=== PATIENT | female | born 1990 | race Caucasian/White ===

== ENCOUNTER 2022-05-17 13:49 | Outpatient (CLI) | payer BC, OTHER, MEDICAID, SELFPAY ==
--- NOTE | ~2022-05-17 | US_ITS ---
EXAMINATION: US OB <=14 wk fetus w TV DATE: 05/17/2022 15:03 INDICATION: Bleeding during first trimester TECHNIQUE: Real-time pelvic transabdominal and transvaginal ultrasound was performed. COMPARISON: None. FINDINGS: The uterus measures 9.4 x 6.1 x 4.1 cm. There is an intrauterine fluid collection. No visib le pole is identified. The intrauterine fluid collection measures 4 mm, which correlates with a n estimated gestational age of 5 weeks and 1 day(s) (+/-) 3 day(s). The right ovary measures 2.4 x 1.5 x 1.4 cm. The left ovary measures 2.6 x 2.4 x 1.7 cm. There is nor mal vascular flow in the ovaries. There is no free fluid in the pelvis. IMPRESSION: 1. 4 mm intrauterine fluid collection without visible pole, possibly due to early . Es timated gestational age of 5 weeks and 1 day(s) (+/-) 3 day(s) and an estimated delivery date of 01/16 based on mean sac diameter. Reviewed, dictated and finalized at location L. [employer] IMPRESSION: 1. 4 mm intrauterine fluid collection without visible pole, possibly due to early . Estimated gestational age of 5 weeks and 1 day(s) (+/-) 3 d ay(s) and an estimated delivery date of 01/16/2023 based on mean sac diameter.
== END 2022-05-17 13:50 | disposition home or self-care (01) ==
PROVIDERS: Visit Provider Obstetrics & Gynecology
DX: O20.9 Hemorrhage in early pregnancy, unspecified (principal); Z3A.00 Weeks of gestation of pregnancy not specified
CPT/HCPCS: 76801; 76817

== ENCOUNTER 2022-05-26 06:55 | Outpatient (CLI) | payer BC, OTHER, MEDICAID, SELFPAY ==
--- NOTE | ~2022-05-26 | US_ITS ---
EXAMINATION: US OB <=14 wk fetus w TV DATE: 05/26/2022 08:35 INDICATION: Spotting complicating first trimester TECHNIQUE: Real-time pelvic transabdominal and transvaginal ultrasound was performed. COMPARISON: 05/17/2022 FINDINGS: The uterus measures 8.7 x 4.4 x 6.0 cm. There is an intrauterine gestational sac. The feta l pole and yolk sac are not yet identified. The mean sac diameter measures 5 mm, which correlates wit h an estimated gestational age of 5 weeks and 2 day(s) (+/-) 3 day(s). The right ovary measures 4.2 x 2.5 x 2.4 cm and contains a 2.4 cm complicated cyst. The left ovary me asures 2.9 x 1.9 x 1.7 cm and contains simple cysts measuring up to 1.1 cm. There is normal vascular flow in the ovaries. There is no free fluid in the pelvis. IMPRESSION: 1. Intrauterine gestational sac with an estimated gestational age of 5 weeks and 3 day(s) (+/-) 3 day (s) and an estimated delivery date of 01/24/2023 based on mean sac diameter. No correlate for spottin g. Reviewed, dictated and finalized at location [facility]. [employer] OPERATOR IMPRESSION: 1. Intrauterine gestational sac with an estimated gestational age of 5 weeks an d 3 day(s) (+/-) 3 day(s) and an estimated delivery date of 01/24/2023 based on mean sac diameter. No correlate for spotting.
== END 2022-05-26 06:56 | disposition home or self-care (01) ==
PROVIDERS: Visit Provider Obstetrics & Gynecology
DX: O26.859 Spotting complicating pregnancy, unspecified trimester (principal); Z3A.00 Weeks of gestation of pregnancy not specified
CPT/HCPCS: 36415; 76801; 76817; 84702

== ENCOUNTER 2022-05-31 01:11 | Day surgery (SDC) | payer OTHER, MEDICAID, SELFPAY ==
[2022-05-27 10:48] VITALS: BMI 28.3
--- NOTE | 2022-05-27 10:53 | PC.NURSE ---
Report to the Outpatient Waiting Room, entrance under the green pavilion located off [facility], at time 1100 on date 05/31/22. Planned Procedure Time: 1300. Time changes happen often and if your time is changed the preop area will call you the afternoon before. - You and your visitor will be asked to self-screen and do not enter if you have any COVID symptoms. - Only one visitor is requested with a max of two and NO children visitors are allowed at this time. - The patient visitor may be requested to leave or wait in car when not with patient due to distancing restrictions. - A mask is optional within the hospital at this time. Patients may have clear liquids (water, carbonated beverages, clear teas, apple juice) until 3 hours prior to surgery with a maximum of 20 ounces. - No food from midnight until time of surgery Take the following medications with a SIP of water the morning of surgery: BUSPIRONE DO NOT STOP ANY OF YOUR OTHER PRESCRIPTION MEDICATIONS PRIOR TO SURGERY EXCEPT THE FOLLOWING Medications to discontinue per physician: VITAMIN Date to take last dose: 05/27/22 Please no make-up, nail occitan, hairspray, perfume, deodorant, or body powder the day of surgery. No jewelry (including any body piercings) or valuables the day of surgery, leave them at home. Please take a shower or bath the night before, or the morning of, surgery with an antibacterial soap. Wear comfortable, loose fitting clothing. - Jewelry must be removed prior to entering the operating room. Rings and piercings that are not removed may be cut off. - The hospital will not accept responsibility for valuables. - Please leave all valuables, including medications, at home the day of surgery. If you are going home after surgery, a licensed driver's license examiner must drive you home. - NO public transportation without another adult if you receive anesthesia. - We recommend that an adult stay with you for 24 hours following discharge. - We also recommend that you do not drive, make important decision, drink alcoholic beverages, or take any drugs that were not prescribed by your health care provider for at least 24 hours after your discharge time. Follow any additional instructions given to you from your surgeon. If you or anyone in your household have experienced Covid symptoms in the past week, please notify your surgeon or the nurse liaison at the phone number below for possible testing. Telephone instructions given to PT - ALEXIS HERMAN and asked if any additional questions and then verbalized understanding. Patient advised to call surgeon office or pre surgery nurse liaison [phone] if any additional questions.
--- NOTE | 2022-05-31 11:35 | P.PNAN_ITS ---
Anes - Initial Pre Proc Eval Procedure: Operation Date: 05/31/22 13:00 Proposed Procedures p Suction Dilation and Curettage - Eladio aJramillo MD Date/Time: 05/31/22 11:35 Surgeon: Eladio Jaramillo MD Pre Op Diagnosis: Nonviable Gestation Patient Data Age: 31 Gender: F Height: 1.63 m Weight: 75 kg Allergies Allergy/AdvReac Type Severity Reaction Status Date / Time Penicillins Allergy Unknown Unknown Verified 05/27/22 10:47 Sulfa (Sulfonamide Allergy Unknown Hives Verified 05/27/22 10:47 Antibiotics) Home Medications Medication Instructions Recorded Confirmed Type prenat.vits,catracho,[id number] 1 tablet PO DAILY 02/09/22 05/27/22 History buspirone 10 mg tablet 10 mg PO BID PRN anxiety #30 tabs 05/26/22 05/27/22 Rx Patient hx anesthesia problems: none Family hx anesthesia problems: none Results Review: All pre-operative results and documents have been reviewed as part of the pre- operative evaluation. PMFSH Past Medical History Medical History Anxiety Depression Vaginal delivery Surgical History Surgical History [place] teeth removed Family History Family History Father Hypertension Social History Social History Smoking status: Never smoker Second hand tobacco smoke exposure: No Alcohol intake: former Alcohol use details: OCCASIONALLY WHEN NOT Substance use: never Substance use type: does not use Living arrangements: with family Spiritual care concerns: No Anes - Eval Final PreProcedure Day of Procedure 05/31/22 11:35 Patient weight: overweight Heart: regular rate and rhythm Lungs: clear to auscultation Airway: Mallampati scale class II Neurological: alert and oriented Last oral intake: >/= 8 hours ASA classification: II Emergent: no Anesthetic plan: proceed Anesthesia type and monitoring: general GIVS and standard monitoring Results Review: All pre-operative results and documents have been reviewed as part of the pre- operative evaluation. Informed Consent: The patient's anesthetic plan and its attendant risks and benefits were discussed with the patient/family/POA. Questions were solicited and answers provided to the satisfaction of the patient/family/POA.
--- NOTE | 2022-05-31 11:45 | PM.IMHP ---
H&P: HPI History of Present Illness Date/Time: 05/31/22 11:45 Chief Complaint: Abnormal rising hcg levels Narrative: Patient with LMP 03/25. Started having spotting May 10. Since then she has had abnormal rising hcg levels. She has had two ultrasounds without confirmation of IUP. No significant change with fluid collections in the uterus on both ultrasounds. Ovarian cyst noted on last ultrasound. She has been recommended for D and C since have not confirmed IUP. Review of Systems Review of Systems: All systems reviewed & are unremarkable except as noted in HPI and below Constitutional: Constitutional: Reports no additional constitutional complaints Eyes: Eyes: Reports no additional eye complaints Cardiovascular: Cardiovascular: Reports no additional cardiovascular complaints Respiratory: Respiratory: Reports no additional respiratory complaints Gastrointestinal: Gastrointestinal: Reports no additional gastrointestinal complaints Genitourinary: Genitourinary: Reports no additional female genitourinary complaints and Reports as per HPI Integumentary/Breasts: Skin/Breast: Reports system reviewed and no additional complaints, except as docu Neurologic: Reports system reviewed and no additional complaints, except as documented Psychiatric: Psychiatric: Reports no additional psychiatric complaints Hematologic/Lymphatic: Hematologic/Lymphatic: Reports no additional hematologic/lymphatic complaints [facility] Past Medical History Medical History Anxiety Depression Vaginal delivery Surgical History Surgical History [place] teeth removed Family History Family History Father Hypertension Social History Social History Smoking status: Never smoker Second hand tobacco smoke exposure: No Alcohol intake: former Alcohol use details: OCCASIONALLY WHEN NOT Substance use: never Substance use type: does not use Living arrangements: with family Spiritual care concerns: No Meds Home Medications and Allergies Home Medications Medication Instructions Recorded Confirmed Type prenat.vits,catracho,[id number] 1 tablet PO DAILY 02/09/22 05/27/22 History buspirone 10 mg tablet 10 mg PO BID PRN anxiety #30 tabs 05/26/22 05/27/22 Rx Allergies Allergy/AdvReac Type Severity Reaction Status Date / Time Penicillins Allergy Unknown Unknown Verified 05/27/22 10:47 Sulfa (Sulfonamide Allergy Unknown Hives Verified 05/27/22 10:47 Antibiotics) Exam Const: General: comfortable and no acute distress Orientation/consciousness: oriented to person, oriented to place and oriented to time Eyes: General: appearance normal, both eyes and all related structures Neck: Neck: normal visual inspection Resp: Effort & Inspection: normal respiratory effort Auscultation: clear to auscultation bilaterally Cardio: Rate: regular rate Rhythm: regular rhythm GI: Inspection: normal to inspection GI Palp: No abdominal tenderness and Yes No hepatosplenomegaly present : External Female Exam: normal external appearance Speculum Exam - Vagina: normal appearance of the vagina Speculum Exam - Cervix: normal appearance of the cervix Bimanual exam- vagina & uterus: normal bimanual exam, uterine mobility normal, uterine shape normal and non-tender Bimanual Exam- Adnexa, other: no masses and No adnexal tenderness Skin: General skin exam: normal color Neuro: General: oriented to person, oriented to place and oriented to time Psych: Appearance: grossly normal Assessment and Plan Assessment and plan (1) Spotting in first trimester: Code(s): O26.851 - Spotting complicating , first trimester Status: Acute Assessment and Plan: Anembryonic gestation vs of unkn
--- NOTE | 2022-05-31 11:58 | WPDHPUPDATE1 ---
History and Physical Update Update Date/Time: 05/31/22 11:58 History and Physical has been reviewed, including an updated exam of the patient. There are NO changes in the patient's condition. Risks, benefits, and alternatives have been discussed and questions answered. Patient agrees to proceed with procedure.
[2022-05-31] MEDS: ACETAMINOPHEN 500 MG TABLET 1000 MG PO (12:00)
[2022-05-31] MEDS: LACTATED RINGERS 1,000 ML 30 ML IV CONT (12:00)
[2022-05-31 12:06] VITALS: BP 116/74; PULSE 93; RESP 14; TEMP 37.9; O2SAT 99
[2022-05-31] MEDS: ceFAZolin 2 GM/D5W 50 ML 2 GM/50 ML BAG IVPB (13:02)
[2022-05-31] MEDS: LIDOCAINE HCL 1% LOCAL INJ 20 ML VIAL 10 ML INFILTRATE (13:02)
[2022-05-31 13:26] VITALS: BP 115/72; PULSE 91; RESP 16; O2SAT 97
--- NOTE | 2022-05-31 13:40 | W.PM.PROC2 ---
Procedure Note - Detailed Date of Procedure 05/31/22 Pre-op Diagnosis Nonviable Gestation Post-op Diagnosis Same Procedure Performed Sharp and suction dilation and curettage Surgeon Eladio Jaramillo MD Anesthesia MAC and Local Indications abnormally rising HCG levels non confirmed intrauterine 1st trimester bleeding Findings a uterus sound to 8 cm a minimal tissue obtained Description of Procedure after informed consent was obtained patient was taken to operating room and adequate IV sedation was administered she was placed in high lithotomy position and prepped and draped in sterile fashion attention was turned to the vagina single-tooth tenaculum placed on anterior lip of the cervix the uterus was sounded to 8 cm the cervix was dilated to a size 8 Cook dilator the suction size 8 suction was inserted small amount of tissue obtained. The uterine cavity was then sharply curetted with good cry noted in all quadrants. there was small amount of tissue obtained at the sharp curettage. The suction was passed again minimal tissue obtained the single-tooth tenaculum was removed hemostasis was noted the speculum was removed. The patient tolerated procedure well sponge count was correct. Estimated Blood Loss -25.0
--- NOTE | 2022-05-31 13:51 | SUR.PHASEII ---
Patient's Blood type is B+. No Rhogam needed.
[2022-05-31 13:55] VITALS: BP 112/72; PULSE 60
[2022-05-31 14:05] VITALS: BP 106/69; PULSE 55
== END 2022-05-31 14:17 | disposition home or self-care (01) ==
PROVIDERS: Visit Provider Obstetrics & Gynecology
PROC: (CPT 59820; principal; 2022-05-31 13:00)
DX: O02.1 Missed abortion (principal)
CPT/HCPCS: 59820; 88305; 88342; A9270; J0690; J2250; J2704; J3010; J7120

== ENCOUNTER 2022-06-06 09:44 | Outpatient (CLI) | payer BC, OTHER, MEDICAID, SELFPAY ==
[2022-06-06 11:07] LABS: Beta HCG Quantitative 120.73 mIU/ML
== END 2022-06-06 09:45 | disposition home or self-care (01) ==
LOC: ANHLAB 09:45
PROVIDERS: Visit Provider Obstetrics & Gynecology
DX: O02.0 Blighted ovum and nonhydatidiform mole (principal); Z3A.00 Weeks of gestation of pregnancy not specified
CPT/HCPCS: 36415; 84702

== ENCOUNTER 2022-06-27 09:44 | Outpatient (CLI) | payer BC, OTHER, MEDICAID, SELFPAY ==
[2022-06-27 10:45] LABS: Beta HCG Quantitative < 2.39 mIU/ML
== END 2022-06-27 09:45 | disposition home or self-care (01) ==
LOC: ANHLAB 09:45
PROVIDERS: Visit Provider Obstetrics & Gynecology
DX: O03.9 Complete or unspecified spontaneous abortion without complication (principal)
CPT/HCPCS: 36415; 84702